=== PATIENT | male | born 1960 | race Caucasian/White ===

== ENCOUNTER → 2016-05-13 | Outpatient (CLI) | payer OTHER, BC ==
[~2016-05-13] MED LIST: GLYBURIDE PO; KETO10TA PO; LISI5TAB PO; METF-384 PO; METOPROLOL PO; MULT-506 PO; OXYC-57 PO; SIMV40TA4 PO
[2016-05-13 12:26] LABS: BASO % 0.1 %; BASO ABS # 0.02 K/uL (0-0.2); COMPLETE YES; EOS % 1.3 %; HEMATOCRIT 48.2 % (42-52); IG% 0.2 %; LYMPH % 24.4 %; MEAN CORPUSCULAR HEMOGLOBIN 29.8 pg (25-34); MEAN CORPUSCULAR HGB CONC 35.1 g/dl (32-36); MEAN PLATELET VOLUME 9.9 fL (7.4-10.4); MONO % 4.8 %; NEUT % 69.2 %; PLATELET COUNT 253 K/uL (130-400); RED BLOOD COUNT 5.67 M/uL (4.7-6.1); WHITE BLOOD COUNT 13.55 K/uL (4.8-10.8)
[2016-05-13 12:45] LABS: BLOOD UREA NITROGEN 11 mg/dl (7-18); BUN/CREATININE RATIO 10.9 (10-20); CALCIUM 9.5 mg/dl (8.5-10.1); CARBON DIOXIDE 31 mmol/L (21-32); CHLORIDE 99 mmol/L (98-107); CREATININE 0.99 mg/dl (0.60-1.40); GLUCOSE 282 mg/dl (70-99); POTASSIUM 4.5 mmol/L (3.5-5.1); SODIUM 136 mmol/L (136-145)
== END | disposition home or self-care (01) ==
LOC: C.CPL 11:28
PROVIDERS: ATTEND Orthopaedic Surgery
DX: S46.211D Strain of muscle, fascia and tendon of other parts of biceps, right arm, subsequent encounter (principal); X58.XXXD Exposure to other specified factors, subsequent encounter

== ENCOUNTER → 2016-05-14 | Day surgery (SDC) | payer OTHER, BC ==
[2016-05-13 14:00] VITALS: Ht 172.7 cm; Wt 90.9 kg
[~2016-05-14] VITALS: Ht 172.7 cm; Wt 90.9 kg
[~2016-05-14] MED LIST changes: +ATROPINE SULFATE 0.1 MG/ML 5ML SYR IV PRN; +BUPIVACAINE/EPINEPHRINE 0.25% 1:200,000 30 ML VIAL ONE; +CEFAZOLIN 2000 MG/60 ML D5W IV SCH; +DEXAMETHASONE SOD INJ 4 MG/ML VIAL ONE; +EpHEDrine SULFATE INJ 50 MG/ML AMP IV PRN; +FENTANYL CITRATE INJ 50 MCG/1 ML 2 ML VIAL ONE; +LACTATED RINGER'S 1000ML 1,000 ML IV SCH; +LIDOCAINE HCL 2% 2 ML VIAL (20MG/ML) ONE; +MIDAZOLAM HCL 1 MG/ML 2ML VIAL ONE; +ONDANSETRON INJ 2 MG/ML 2 ML VIAL IV PRN; +ONDANSETRON INJ 2 MG/ML 2 ML VIAL ONE; +OXYCODONE/ACETAMINOPHEN 5-325 TAB PO PRN; +PATIENT'S ALLERGY INFO NEEDS ENTERED SCH; +PROPOFOL IV EMULSION 10 MG/ML 20 ML VIAL IV ONE; +SODIUM CHLORIDE 0.9% 1000ML 1,000 ML IV SCH
--- NOTE | 2016-05-14 12:55 | History & Physical Bridge - [place] ---
H&P Re-Evaluation Bridge Note: I have examined the patient, reviewed the History & Physical and in the interval since the performance of the History & Physical I have noted the following changes of clinical significance: No changes noted
--- NOTE | 2016-05-14 14:06 | Discharge Instructions-SurgCtr ---
Discharge Instructions Visit Reason for Visit: Left Biceps Tendon Rupture Discharge Discharge Diagnosis / Problem: SAME ABOVE Discharge Goals Goal(s): Decrease discomfort, Improve function Medications Stopped Medications Name(s): Metformin stopped last dose yesterday at 0500. Restart Stopped Medication(s): MAY RESTART 05/15/2016 Activity Recommendations Activity Limitations: as noted below Lifting Limitations: until after follow-up appointment Exercise/Sports Limitations: until after follow-up appointment Shower/Bathe: may shower/bathe in 3 days (MAY REMOVE DRESSING IN 48 HOURS ) Anesthesia . Post Anesthesia Instructions: If you have had General Anesthesia or IV Sedation: * Do not drive today. * Resume driving when surgeon permits. * Do not make important decisions or sign legal documents today. * Call surgeon for: 1. Temperature elevations greater than 101 degrees F. 2. Uncontrollable pain. 3. Excessive bleeding. 4. Persistent nausea and vomiting. 5. Medication intolerance (nausea, vomiting or rash). * For nausea and vomiting use only clear liquids such as: tea, soda, bouillon until nausea subsides, then gradually increase diet as tolerated. * If you have any concerns or questions, call your surgeon's office. If physician is unavailable and it is an emergency, call 911 or go to the nearest emergency room. . Instructions / Follow-Up Instructions / Follow-Up MEDICATIONS: * Resume previous medications unless instructed otherwise by your surgeon. * Always take pain medication on a full stomach or with food to avoid upset stomach. * Do not drink alcohol or drive while taking narcotics. * Ibuprofen or Tylenol may be taken if narcotic not needed. SPECIAL CARE INSTRUCTIONS: __ None _X_ Keep extremity elevated and iced x 48 hours; apply ice 20-30 minutes 8-10 times/day. May remove at night. _X_ Sling (MAY REMOVE TO SHOWER) _X_24 hrs/day __ Remove at night __ Shoulder Immobilizer __ 24 hrs/day __ Remove at night _X_ Dressing __ Maintain until seen in office, may shower with plastic over site _X_ Remove dressings in 48 hours and then may shower __ Cover incisions with band-aids after showering __ Do not remove PRINEO DRESSING. MAY REMOVE ОЛЬГА WRAP, WHITE GAUZE AND 4X4 DRESSINGS. LEAVE THE PURPLE COLORED DRESSING ON THE SKIN. Call physician if chills or temperature rises above 102 degrees or pain unrelieved by prescribed pain medications at . . Diet Recommendations Home Diet: no limitations Procedures Procedures Performed: Left Distal Biceps Tendon Repair Pending Studies Studies pending at discharge: no Work Instructions Return To Work: after follow-up Lifting Limitations: NO LIFTING WITH LEFT ARM Medical Emergencies . Who to Call and When: Medical Emergencies: If at any time you feel your situation is an emergency, please call 911 immediately. . Non-Emergent Contact Non-Emergency issues call your: Primary Care Provider Call Non-Emergent contact if: you have a fever, temperature is above 101.5 . . "Provider Documentation" section prepared by Daniel Rodríguez.
--- NOTE | 2016-05-14 14:08 | [facility] Post Operative Brief Note ---
Immediate Operative Summary Operative Date May 14, 2016. Pre-Operative Diagnosis Left Distal Biceps Tendon Rupture Post-Operative Diagnosis Same Procedure(s) Performed Left Distal Biceps Tendon Repair Surgeon Dr. Foy Admin Prog Coord Surgeon(s) Rosa Rodríguez PA-C Estimated Blood Loss Trace Findings ABOVE Specimens None Complication(s) None Disposition Recovery Room / PACU
[2016-05-14] MEDS: FENTANYL CITRATE INJ 50 MCG/1 ML 2 ML VIAL IV PRN ×2 (14:17→14:22)
--- NOTE | 2016-05-14 14:17 | OPERATIVE REPORT ---
DATE OF OPERATION: 05/14/2016 PREOPERATIVE DIAGNOSIS: Acute left distal biceps tendon rupture. POSTOPERATIVE DIAGNOSIS: Same. PROCEDURE: Left open distal biceps tenodesis. SURGEON: Dr. Jose Foy. BREAKER TENDER: Thomas Rodríguez PA-C, whose assistance was necessary for positioning the arm and helping with retraction. ANESTHESIA: General. COMPLICATIONS: None. CONDITION: Stable to PACU. INDICATIONS FOR PROCEDURE: Julisa is a very pleasant 55-year-old male who presented to my office after a work related injury in which he tore his left distal biceps. MRI confirmed the diagnosis. He elected to undergo a distal biceps tendon reattachment. DESCRIPTION OF PROCEDURE: On 05/14/2016, he arrived at [facility] for the above procedure. He was seen in the preoperative holding area and the operative extremity was identified and signed. He was given apparent antibiotic, taken back to the operating room, laid on the table in supine position and put under general anesthesia. The left elbow was then prepped and draped in sterile fashion. A time-out was done and the patient and operative extremity was properly identified. A longitudinal incision was made between the flexor pronator mass and the mobile wad. Dissection was taken down through the fascia with care not to disrupt the veins. The radial tuberosity was identified and cleaned off. The distal biceps tendon was then identified proximally and pulled out of the wound. The tendon measured to be a size 7.5. The tendon was then whipstitched with an Arthrex FiberLoop. A button was placed on the end of the tails. A 3.2 mm biceps pin was passed from the center of the radial tuberosity and out the posterior cortex. The tuberosity was then opened up with an 8 mm reamer. The biceps button was then passed through the posterior cortex, flipped and the tension slide technique was used to deliver the biceps tendon into the 8 mm hole. This gave good fixation. The wound was then irrigated. A single 7 x 10 mm PEEK biointerference screw was then placed. The tails of the suture were tied around the screw and cut. The wound was then irrigated. Surrounding soft tissues were injected with Marcaine with epinephrine. The tourniquet was deflated and hemostasis was controlled. The skin was then closed with 3-0 Vicryl, 3-0 V-Loc suture and a Prineo dressing. He was then placed in a compressive dressing, extubated, transferred to a [facility] and taken to the postanesthesia care unit in stable condition. He tolerated the procedure well. I attest to the content of the Intraoperative Record and any orders documented therein. Any exceptio ns are noted below.
[2016-05-14 14:50] VITALS: TEMP 36.6
--- NOTE | 2016-05-14 15:09 | Anesthesia Progress Nt - [facility] ---
Anesthesia Post Op Note Date & Time May 14, 2016 at 15:09 Vital Signs Pain Intensity: 3.0 Vital Signs Past 12 Hours Date Time Temp Pulse Resp B/P Pulse Ox O2 Delivery O2 Flow Rate FiO2 05/14/16 14:50 36.6 70 16 129/85 94 Room Air 05/14/16 14:39 36.6 139/84 05/14/16 14:38 83 21 95 05/14/16 14:38 82 21 05/14/16 14:34 126/94 05/14/16 14:33 84 13 05/14/16 14:33 84 13 95 05/14/16 14:29 128/90 05/14/16 14:28 83 17 100 05/14/16 14:28 83 17 05/14/16 14:24 135/90 05/14/16 14:23 81 12 05/14/16 14:23 79 12 93 05/14/16 14:22 128/92 05/14/16 14:19 137/104 05/14/16 14:18 80 15 05/14/16 14:18 78 15 99 05/14/16 14:14 137/102 05/14/16 14:13 76 17 05/14/16 14:13 75 17 98 05/14/16 14:09 138/106 05/14/16 14:08 75 16 05/14/16 14:08 75 16 97 05/14/16 14:04 136/98 05/14/16 14:03 86 16 97 05/14/16 14:03 86 16 05/14/16 14:03 36.5 91 16 143/103 96 Mask 6 05/14/16 12:14 37.1 82 16 128/91 95 Room Air Notes Mental Status: alert / awake / arousable, participated in evaluation Pt Amnestic to Procedure: Yes Nausea / Vomiting: adequately controlled Pain: adequately controlled Airway Patency, RR, SpO2: stable & adequate BP & HR: stable & adequate Hydration State: stable & adequate Anesthetic Complications: no major complications apparent
[2016-05-14 15:20] VITALS: BP 125/84; PULSE 82; O2SAT 94
== END | disposition home or self-care (01) ==
LOC: X.SURG 11:49
PROVIDERS: ATTEND Orthopaedic Surgery
DX: S46.292A Other injury of muscle, fascia and tendon of other parts of biceps, left arm, initial encounter (principal); X58.XXXA Exposure to other specified factors, initial encounter; I10 Essential (primary) hypertension; E11.9 Type 2 diabetes mellitus without complications; E66.9 Obesity, unspecified; Z98.890 Other specified postprocedural states